=== PATIENT | female | born 2000 | race Caucasian/White ===

== ENCOUNTER 2021-04-16 07:43 | Emergency (ER) | payer OTHER ==
[~2021-04-16] VITALS: Ht 165.1 cm; Wt 104.3 kg
[2021-04-16] MEDS ORDERED: FLONASE ALLER15.8 ML (09:09)
[2021-04-16] MEDS ORDERED: ALL DAY ALLERGY10 MG PO (09:09)
[2021-04-16 09:28] LABS: BUN/CREAT RATIO (CALC) 33.3 RATIO; CREATININE 0.63 mg/dL (0.51-0.95)
[2021-04-16] MEDS ORDERED: NORVASC5 MG PO (09:31)
== END 2021-04-16 10:03 | disposition home or self-care (01) ==
LOC: FER 07:43
PROVIDERS: Internal Medicine
DX: I10 Essential (primary) hypertension (principal); J06.9 Acute upper respiratory infection, unspecified
CPT/HCPCS: 36415; 80048; 99283